=== PATIENT | male | born 1995 | race Caucasian/White ===

== ENCOUNTER 2018-02-17 14:41 | Emergency (ER) | payer SELFPAY ==
[2018-02-17] MEDS: TETRACAINE 0.5% OPHTH SOLN 4ML OU (15:45)
[2018-02-17] MEDS: FLUORESCEIN OPHTH 1 MG STRIP OU (15:45)
[2018-02-17] MEDS: ERYTHROMYCIN OPHTH OINT OD (16:41)
== END 2018-02-17 17:29 | disposition home or self-care (01) ==
LOC: M ED 14:41
DX: T15.91XA Foreign body on external eye, part unspecified, right eye, initial encounter (principal); H57.11 Ocular pain, right eye; X58.XXXA Exposure to other specified factors, initial encounter; Y92.89 Other specified places as the place of occurrence of the external cause; Z87.891 Personal history of nicotine dependence
CPT/HCPCS: 99283

== ENCOUNTER 2018-03-25 17:00 | Emergency (ER) | payer SELFPAY | END 2018-03-25 18:04 | disposition home or self-care (01) | LOC: M ED 17:00 | DX: K08.89 Other specified disorders of teeth and supporting structures (principal) | CPT/HCPCS: 99282 ==

== ENCOUNTER 2018-04-05 10:50 | Emergency (ER) | payer SELFPAY ==
[2018-04-05] MEDS: NORCO, ANEXSIA 5/325MG TABLET (HYDROcodone/ACETAMINOPHEN) PO (11:53)
[2018-04-05] MEDS: AMOXICILLIN 500 MG CAP PO (11:53)
[2018-04-05] MEDS: IBUPROFEN 800 MG TAB PO (11:53)
== END 2018-04-05 12:00 | disposition home or self-care (01) ==
LOC: M ED 10:50
DX: K02.9 Dental caries, unspecified (principal); K01.1 Impacted teeth; R51 Headache; Z87.891 Personal history of nicotine dependence
CPT/HCPCS: 99283

== ENCOUNTER 2018-04-08 22:16 | Emergency (ER) | payer SELFPAY ==
[2018-04-09] MEDS: NORCO, ANEXSIA 5/325MG TABLET (HYDROcodone/ACETAMINOPHEN) PO (00:52)
[2018-04-09] MEDS: NORCO 5/325MG TABLET (BULK FOR ED) PO (01:21)
[2018-04-09] MEDS: AUGMENTIN 875 MG TAB PO (01:21)
== END 2018-04-09 01:25 | disposition home or self-care (01) ==
LOC: M ED 22:16
DX: R68.84 Jaw pain (principal); K13.79 Other lesions of oral mucosa; K08.89 Other specified disorders of teeth and supporting structures; Z87.891 Personal history of nicotine dependence
CPT/HCPCS: 99283

== ENCOUNTER 2018-06-22 18:34 | Emergency (ER) | payer SELFPAY, OTHER ==
[2018-06-22] MEDS: NORCO, ANEXSIA 5/325MG TABLET (HYDROcodone/ACETAMINOPHEN) PO (18:57)
== END 2018-06-22 19:30 | disposition home or self-care (01) ==
LOC: M ED 18:34
DX: S46.011A Strain of muscle(s) and tendon(s) of the rotator cuff of right shoulder, initial encounter (principal); W10.9XXA Fall (on) (from) unspecified stairs and steps, initial encounter; Y92.099 Unspecified place in other non-institutional residence as the place of occurrence of the external cause; Y93.89 Activity, other specified; Y99.9 Unspecified external cause status
CPT/HCPCS: 73030

== ENCOUNTER 2018-07-13 16:23 | Emergency (ER) | payer SELFPAY | END 2018-07-13 17:51 | disposition home or self-care (01) | LOC: M ED 16:23 | DX: J02.0 Streptococcal pharyngitis (principal) | CPT/HCPCS: 87880 ==

== ENCOUNTER 2018-07-15 21:39 | Emergency (ER) | payer SELFPAY ==
[2018-07-15] MEDS: PSEUDOEPHEDRINE 30 MG TAB PO (23:14)
== END 2018-07-15 23:34 | disposition home or self-care (01) ==
LOC: M ED 21:39
DX: J06.9 Acute upper respiratory infection, unspecified (principal); R51 Headache; Z87.891 Personal history of nicotine dependence
CPT/HCPCS: 99282

== ENCOUNTER 2018-07-20 16:23 | Emergency (ER) | payer SELFPAY | END 2018-07-20 16:55 | disposition home or self-care (01) | LOC: M ED 16:23 | DX: J01.01 Acute recurrent maxillary sinusitis (principal); J01.11 Acute recurrent frontal sinusitis; Z87.891 Personal history of nicotine dependence | CPT/HCPCS: 99282 ==

== ENCOUNTER 2018-07-30 19:10 | Emergency (ER) | payer SELFPAY ==
[2018-07-30 20:04] LABS: BASO % 0.3 % (0.0-1.0); EOS # 0.2 10^3/uL (0.0-0.50); EOS % 2.1 % (0.0-3.0); HEMATOCRIT 46.4 % (42.0-52.0); HEMOGLOBIN 15.9 g/dl (13.5-17.5); IMMATURE GRANULOCYTE % 0.3 % (0-3.0); LYMPH # 1.6 10^3/uL (1.5-6.5); LYMPH % 16.3 % (24.0-44.0); MEAN CORPUSCULAR HEMOGLOBIN 33.3 pg (27.0-33.0); MEAN CORPUSCULAR HGB CONC 34.3 g/dl (32.0-36.5); MEAN CORPUSCULAR VOLUME 97.1 fl (80.0-96.0); MONO # 0.7 10^3/uL (0.0-0.8); MONO % 6.9 % (0.0-5.0); NEUTROPHILS # 7.1 10^3/uL (1.8-7.7); NEUTROPHILS % 74.1 % (36.0-66.0); PLATELET COUNT, AUTOMATED 208 10^3/uL (150-450); RED BLOOD COUNT 4.78 10^6/uL (4.30-6.10); RED CELL DISTRIBUTION WIDTH 11.5 % (11.5-14.5); WHITE BLOOD COUNT 9.6 10^3/uL (4.0-10.0)
[2018-07-30 20:26] LABS: D-DIMER QUANT < 270.0 ng/ml (<500)
[2018-07-30 20:31] LABS: ANION GAP 7 MEQ/L (8-16); BLOOD UREA NITROGEN 8 MG/DL (7-18); CALCIUM LEVEL 9.3 MG/DL (8.5-10.1); CARBON DIOXIDE LEVEL 28 MEQ/L (21-32); CHLORIDE LEVEL 107 MEQ/L (98-107); CK-MB VALUE MASS < 1.0 NG/ML (<3.6); CPK CREATINE PHOSPHOKINASE 88 U/L (39-308); CREATININE FOR GFR 0.89 MG/DL (0.70-1.30); GLOMERULAR FILTRATION RATE > 60.0 (>60); GLUCOSE, FASTING 89 MG/DL (70-100); MB/CK RELATIVE INDEX 1.14 (< OR =4); POTASSIUM SERUM 3.9 MEQ/L (3.5-5.1); SODIUM LEVEL 142 MEQ/L (136-145); THYROID STIMULATING HORMONE 0.922 uIU/ML (0.358-3.740); TROPONIN I < 0.02 NG/ML (< 0.10)
== END 2018-07-30 21:21 | disposition home or self-care (01) ==
LOC: M ED 19:10
DX: R07.89 Other chest pain (principal)
CPT/HCPCS: 71046